=== PATIENT | female | born 1960 | race Caucasian/White ===

== ENCOUNTER 2018-02-23 19:08 | Emergency (ER) | payer OTHER ==
--- NOTE | 2018-02-23 20:14 | RAD ---
LEFT MIDDLE FINGER THREE VIEW 02/23/18 HISTORY: Middle finger injury. COMPARISON: None. FINDINGS: There is moderate edema of the dorsal aspect of the finger at the proximal interphalangeal joint. No acute fracture or malalignment appreciated. IMPRESSION: Soft tissue swelling. No acute displaced fracture or malalignment. POS: [facility]
== END 2018-02-23 20:54 | disposition home or self-care (01) ==
LOC: ERS 19:08
DX: S60.032A Contusion of left middle finger without damage to nail, initial encounter (principal); E03.9 Hypothyroidism, unspecified; Z79.899 Other long term (current) drug therapy; W22.8XXA Striking against or struck by other objects, initial encounter

== ENCOUNTER 2022-07-05 14:23 | Outpatient (CLI) | payer OTHER | END 2022-07-05 14:24 | disposition home or self-care (01) | LOC: BICRAD 14:23 | PROVIDERS: ATTEND Family Medicine | DX: M25.562 Pain in left knee (principal) ==

== ENCOUNTER 2023-05-29 10:20 | Outpatient (CLI) | payer OTHER | END 2023-05-29 10:21 | disposition home or self-care (01) | LOC: BICMRI 10:20 | PROVIDERS: ATTEND Orthopaedic Surgery | DX: M23.304 Other meniscus derangements, unspecified medial meniscus, left knee (principal); S83.212A Bucket-handle tear of medial meniscus, current injury, left knee, initial encounter; M94.262 Chondromalacia, left knee; M71.22 Synovial cyst of popliteal space [Baker], left knee; S83.402A Sprain of unspecified collateral ligament of left knee, initial encounter; S83.502A Sprain of unspecified cruciate ligament of left knee, initial encounter ==